=== PATIENT | male | born 1985 | race Caucasian/White ===

== ENCOUNTER 2017-09-16 11:52 | Emergency (ER) | payer SELFPAY ==
[2017-09-16] MEDS ORDERED: MECLIZINE HCL 25 MG TABLET (FP) PO ONE (12:20)
[2017-09-16 12:21] VITALS: BP 140/102; PULSE 86; TEMP 97.5; BMI 30.7
[2017-09-16] MEDS ORDERED: MECLIZINE HCL 25 MG TABLET (FP) ONE (12:24)
--- NOTE | 2017-09-16 12:24 | PDOC ---
History of Present Illness - General Chief Complaint: Lightheaded Stated Complaint: DIZZY Time Seen by Provider: 09/16/17 12:02 - History of Present Illness Initial Comments: 09/16/17 13:13 Chief complaint: Vertigo History of present illness: This morning the patient began to feel a spinning sensation, intermittent, seemed aggravated with change of position or rapid movement of the body, head, or neck. Review of systems: Denies any other visual or focal neurologic symptoms, unsteadiness of gait, fall, chest pain, shortness of breath, abdominal pain, nausea, vomiting, diarrhea. Admits to recent UTI with a sensation of fullness or pressure in his right ear. Past medical history: Denies any prior serious medical or surgical conditions, stabilizations, or surgeries. Takes no medication Social history smokes about one half pack per day, denies alcohol, denies drugs. Stable home and family. Works as a construction tech Family history: Reviewed and noncontributory, specifically, mother, father, siblings without known heart disease, NM, stroke, diabetes or other metabolic diseases, or cancer Physical exam: Alert and oriented 3, well-developed well-nourished, no acute distress, cheerful and cooperative Afebrile, vital signs normal PERRLA 4 mm, fundi benign with sharp disc margins and good central venous pulsations, no hemorrhages or exudates, no AV nicking. ENT clear. Neck supple without bruit mass or nodes Chest clear to P&A, full breath sounds throughout bilaterally, no wheezes rales or rhonchi CV regular without murmur rub or gallop pulses full and symmetric no JVD or edema no bruits Abdomen soft nontender without mass or organomegaly. Nondistended, normal bowel sounds Neurological C2 to 12 intact. Strength full and symmetric. No focal sensory or motor deficits. Cerebellum intact. Gait stable and unimpaired. There is mild transient vertigo with rapid change of positions and head movement. Impression: Recent URI, irritation of the labyrinth, vertigo Plan: Symptomatic treatment with meclizine, rest, no construction work until symptoms completely resolved. If no improvement 3-5 days, see ENT specialist for further evaluation and treatment before returning to full activity. Past History - Past Medical History Allergies/Adverse Reactions: Allergies Allergy/AdvReac Type Severity Reaction Status Date / Time No Known Allergies Allergy Verified 09/16/17 11:57 Home Medications: Ambulatory Orders Meclizine HCl 25 mg PO TID PRN #20 tablet 09/16/17 *DC/Admit/Observation/Transfer Diagnosis at time of Disposition: Vertigo - Discharge Dispostion Disposition: HOME Condition at time of disposition: Improved Admit: No - Prescriptions Prescriptions: Meclizine HCl 25 mg PO TID PRN #20 tablet PRN Reason: Vertigo - Referrals Referrals: Alex Sloan MD [Staff Physician] - 1 week - Patient Instructions Printed Discharge Instructions: DI for Vertigo - Post Discharge Activity Forms/Work/School Notes: Back to Work
== END 2017-09-16 13:12 | disposition home or self-care (01) ==
LOC: FER 11:52
DX: R42 Dizziness and giddiness (principal)
CPT/HCPCS: 99282-25